=== PATIENT | male | born 1990 | race Caucasian/White ===

== ENCOUNTER → 2016-12-14 | Outpatient (CLI) | payer BC ==
--- NOTE | 2016-12-14 11:46 | DIAGNOSTIC IMAGING REPORT ---
ADDENDUM ADDENDUM: There is an error in the initial report. There is no left mandibular condyle fracture. The fracture is present on the comparison study from 2005. No fracture is seen on today's examination and there is no temporal bone abnormality on today's examination. Electronically signed by: Ion Pedersen M.D. 12/14/2016 1:35 PM Dictated Date/Time: 12/14/2016 1:[address] SCAN OF THE TEMPORAL BONES WITHOUT IV CONTRAST CLINICAL HISTORY: Tinnitus. Left-sided hearing loss. COMPARISON STUDY: CT scan of the facial bones dated 12/24/2005. TECHNIQUE: High residual CT scan of the temporal bones is performed. Images are reviewed in the axial, sagittal, coronal planes. IV contrast was not administered for this examination. A dose lowering technique was utilized adhering to the principles of ALARA. CT DOSE: 337.28 mGycm FINDINGS: The skeletal structures are well mineralized. There is no evidence of temporal bone fracture. There is a comminuted fracture of the left mandibular condyle. There is no dislocation at the left TMJ. The mastoid air cells are well pneumatized. The middle ear structures are normal in appearance. The ossicles are normal in location. The scutum is sharp bilaterally. There is no evidence of dehiscence of the tegmen tympany. No soft tissue mass is suspected. The visualized paranasal sinuses are clear. The visualized orbital contents are normal as visualized. Imaged brain parenchyma is normal in appearance. IMPRESSION: 1. There is a comminuted fracture of the left mandibular condyle. 2. No temporal bone abnormality is seen. Electronically signed by: Ion Pedersen M.D. 12/14/2016 11:45 AM Dictated Date/Time: 12/14/2016 11:35 AM
== END | disposition home or self-care (01) ==
LOC: C.CTS 11:19
PROVIDERS: ATTEND Physician Assistant
DX: Z87.828 Personal history of other (healed) physical injury and trauma (principal)